=== PATIENT | male | born 1975 | race American Indian/Alaskan Native ===

== ENCOUNTER 2019-08-16 08:36 | Emergency (ER) | payer SELFPAY ==
--- NOTE | 2019-08-16 10:34 | Emergency Department Report ---
ED Headache HPI - General Chief Complaint: Headache Stated Complaint: HEADACHE Time Seen by Provider: 08/16/19 10:07 Source: patient Exam Limitations: no limitations - History of Present Illness Initial Comments: 44-year-old male with a history of diabetes, hypertension and tobacco use presents to the ER today complaining of headache and lightheadedness. Patient states his symptoms started 2 days ago. Patient reports that he has had a left frontal/left parietal headache constantly for the past 2 days. He describes it as a throbbing type pain. It is nonradiating. He reports associated lightheadedness, and blurry vision. He does admit that he has chronic blurry vision to both eyes but since Thursday has been a little worse. He also reports that on Thursday he vomited twice. He denies any vomiting yesterday or today. He denies any nausea yesterday or today. Patient states that he is also had a productive cough bringing up white-yellow sputum for the past couple days. He denies any associated neck pain. He denies any fever, chills, shortness of breath, wheezing, chest pain, abdominal pain, diarrhea, focal weakness, numbness, tingling or speech changes. He denies any recent head injury. He denies any obvious ill contacts. Timing/Duration: other (2 days ago ) Allergies/Adverse Reactions: Allergies No Known Allergies Allergy (Unverified 08/16/19 08:38) Home Medications: Ambulatory Orders Butalb/Acetaminophen/Caffeine [Fioricet 50-300-40 mg CAP] 1 cap PO Q6HR PRN #12 cap 08/16/19 Ondansetron [Zofran Odt] 4 mg PO Q8HR PRN #12 tab.rapdis 08/16/19 cephALEXin [Keflex] 500 mg PO Q8HR #21 cap 08/16/19 ED Review of Systems ROS: Stated complaint: HEADACHE Other details as noted in HPI Comment: All other systems reviewed and negative Constitutional: denies: chills, fever ENT: denies: ear pain, throat pain Respiratory: cough. denies: shortness of breath, SOB with exertion, SOB at rest, stridor, wheezing Cardiovascular: denies: chest pain, palpitations Gastrointestinal: nausea, vomiting. denies: abdominal pain, diarrhea Genitourinary: denies: urgency, dysuria Musculoskeletal: denies: back pain, joint swelling, arthralgia Neurological: headache, vertigo, other (Lightheadedness). denies: weakness, numbness, paresthesias, confusion, abnormal gait Psychiatric: denies: anxiety, depression Hematological/Lymphatic: denies: easy bleeding, easy bruising ED Past Medical Hx - Past Medical History Previous Medical History?: Yes Hx Hypertension: Yes Hx Diabetes: Yes - Surgical History Past Surgical History?: No - Social History Smoking Status: Current Every Day Smoker Substance Use Type: None - Medications Home Medications: Home Medications Medication Instructions Recorded Confirmed Last Taken Type Butalb/Acetaminophen/Caffeine 1 cap PO Q6HR PRN #12 cap 08/16/19 Unknown Rx [Fioricet 50-300-40 mg CAP] Ondansetron [Zofran Odt] 4 mg PO Q8HR PRN #12 tab.rapdis 08/16/19 Unknown Rx cephALEXin [Keflex] 500 mg PO Q8HR #21 cap 08/16/19 Unknown Rx ED Physical Exam - General Limitations: No Limitations General appearance: alert, in no apparent distress - Head Head exam: Present: atraumatic, normocephalic, normal inspection - Eye Eye exam: Present: normal appearance, PERRL, EOMI Pupils: Present: normal accommodation - ENT ENT exam: Present: normal exam, mucous membranes moist, other (Fluid noted behind both TMs.) - Neck Neck exam: Present: normal inspection, full ROM. Absent: meningismus - Respiratory Respiratory exam: Present: normal lung sounds bilaterally. Absent: respiratory distress, wheezes, rales, rhonchi, stridor - Cardiovascular Cardiovascular Exam: Present: regular rate, normal rhythm. Absent: systolic murmur, diastolic murmur, rubs, gallop - GI/Abdominal GI/Abdominal exam: Present: soft, normal bowel sounds - Extremities Exam Extremities exam: Present: normal inspection, full ROM. Absent: pedal edema - Neurological Exam Neurological exam: Present: alert, altered, oriented X3, CN II-XII intact, normal gait (slow but normal ), motor sensory deficit, other - Psychiatric Psychiatric exam: Present: normal affect, normal mood ED Course Vital Signs 08/16/19 08/16/19 08/16/19 08:38 12:41 14:59 Temperature 98.3 F 100.3 F H Pulse Rate 106 H 91 H Respiratory 16 16 18 Rate Blood Pressure 146/86 163/110 O2 Sat by Pulse 99 96 Oximetry 08/16/19 15:48 Temperature 99.6 F Pulse Rate Respiratory Rate Blood Pressure O2 Sat by Pulse Oximetry - Reevaluation(s) Reevaluation #1: 08/16/19 12:31 1231 --patient resting comfortably. He reports improvement of his headache after medications. Patient labs reviewed, creatinine noted to be elevated at 2.1, BUN is 20, sodium 128, sugars 345. Lipase mildly elevated by patient has no abdominal pain. EKG shows nothing acute. Trop nl. Chest x-ray normal. Head CT is normal. CBC normal. Urinalysis pending. Discussed case with Dr Rothman, he recommend IV fluids, 5units insulin IV and repeat BMP/accucheck in about 1 hr. 08/16/19 12:35 Reevaluation #2: 08/16/19 15:49 Patient reports feeling much better after IV fluids, and insulin. He also states that his headache and lightheadedness is better. Repeat BMP shows an improvement in his renal function as well as his sodium and his blood sugar. Urinalysis is concerning for UTI, urine culture is pending. Patient appears well, he is not toxic, he is currently no acute distress. He is awake, alert and oriented x3. He is neurologically intact. Discussed lab results, imaging results, suspected diagnosis and treatment plan with patient. Informed patient that I recommend that he drinks lots of water daily, and that he should be compliant with taking his insulin as well as a blood pressure medication. He will be started on antibiotic for UTI. No indication for further work-up, admission, or emergent consultation at this time. Patient informed to follow-up with his primary care doctor. But he understands if anything worsens or changes return to the ER. Patient was stable at time of discharge. ED Medical Decision Making - Lab Data Result diagrams: 08/16/19 11:01 08/16/19 14:42 - EKG Data EKG shows normal: sinus rhythm Rate: normal (95) - EKG Data Interpretation: no acute changes - Radiology Data Radiology results: report reviewed [facility] [address] [place] [address] XRay Report Signed Patient: MIAH LOPEZ MR#: [id number] : 1975 Acct:[id number] Age/Sex: 44 / M ADM Date: 08/16/19 Loc: ED Attending Dr: Ordering Physician: FARZANA DOHERTY Date of Service: 08/16/19 Procedure(s): XR chest routine 2V Accession Number(s): [id number] cc: FARZANA DOHERTY Fluoro Time In Minutes: CHEST 2 VIEWS INDICATION: Cough. COMPARISON: None. FINDINGS: Support devices: None. Heart: Within normal limits. Lungs/Pleura: No acute air space or interstitial disease. No significant pleural effusion. IMPRESSION: No acute findings. Signer Name: Chris Martinez MD Signed: 08/16/2019 11:04 AM Workstation Name: [id number] Transcribed By: ES Dictated By: Chris Martinez MD Electronically Authenticated By: Chris Martinez MD Signed Date/Time: 08/16/19 1104 DD/ 1103 TD/TT: [place] [address] Cat Scan Report Signed Patient: MIAH LOPEZ MR#: [id number] : 1975 Acct:[id number] Age/Sex: 44 / M ADM Date: 08/16/19 Loc: ED Attending Dr: Ordering Physician: FARZANA DOHERTY Date of Service: 08/16/19 Procedure(s): CT head/brain wo con Accession Number(s): [id number] cc: FARZANA DOHERTY NONENHANCED CT SCAN OF THE HEAD: INDICATION / CLINICAL INFORMATION: 44 years Male; Dizzy/headache X3 days hx of HBP. TECHNIQUE: Routine CT head without contrast. All CT scans at this location are performed using CT dose reduction for ALARA by means of automated exposure control. COMPARISON: None. FINDINGS: BRAIN / INTRACRANIAL CONTENTS: No acute hemorrhage, mass effect, midline shift, hydrocephalus, or acute, large territorial infarct. Since the patchy areas of volume loss are seen in the lateral convexity of both cerebral hemispheres along the medial surface of frontal lobes. Periventricular low attenuation areas are seen due to chronic small vessel disease. Brainstem and cerebellar hemispheres appear normal. CRANIOCERVICAL JUNCTION: No significant abnormality. ORBITS: No significant abnormality of visualized orbits. SINUSES / MASTOIDS: No significant abnormality of the visualized paranasal sinuses or mastoid air cells. ADDITIONAL FINDINGS: None. IMPRESSION: No acute focal parenchymal lesion in the brain Signer Name: Subha Colon MD Signed: 08/16/2019 12:15 PM Workstation Name: [email or web address] Transcribed By: BS Dictated By: Subha Prescott MD Electronically Authenticated By: Subha Prescott MD Signed Date/Time: 08/16/19 1215 DD/ 1207 TD/TT: Critical care attestation.: If time is entered above; I have spent that time in minutes in the direct care of this critically ill patient, excluding procedure time. ED Disposition Clinical Impression: Dehydration, Headache, Renal insufficiency, Hyperglycemia due to diabetes mellitus, UTI (urinary tract infection) Disposition: - TO HOME OR SELFCARE Is pt being admited?: No Does the pt Need Aspirin: No Condition: Stable Instructions: Dehydration (ED), Urinary Tract Infection in Men (ED), Diabetes Mellitus Type 2 in Adults (ED), Acute Headache (ED), Impaired Kidney Function (ED) Additional Instructions: I recommend you continue to drink lots of fluids (water) at home. It is importan t that you take you blood pressure as well as diabetic medications daily. I recommend close follow up with PCP. Return to ED if worse. Prescriptions: Butalb/Acetaminophen/Caffeine [Fioricet 50-300-40 mg CAP] 1 cap PO Q6HR PRN #12 cap PRN Reason: Headache cephALEXin [Keflex] 500 mg PO Q8HR #21 cap Ondansetron [Zofran Odt] 4 mg PO Q8HR PRN #12 tab.rapdis PRN Reason: Nausea Referrals: RAVI FATIMA MD [Staff Physician] - 3-5 Days Time of Disposition: 15:44
[2019-08-16] MEDS ORDERED: diphenhydrAMINE 50 MG/ML VIAL IV ONE (10:35)
[2019-08-16] MEDS ORDERED: METOCLOPRAMIDE 10 MG/2 ML INJ IV ONE (10:35)
--- NOTE | 2019-08-16 11:08 | XRay Report ---
CHEST 2 VIEWS INDICATION: Cough. COMPARISON: None. FINDINGS: Support devices: None. Heart: Within normal limits. Lungs/Pleura: No acute air space or interstitial disease. No significant pleural effusion. IMPRESSION: No acute findings. Signer Name: Chris Martinez MD Signed: 08/16/2019 11:04 AM Workstation Name: [id number]
[2019-08-16 11:13] LABS: Basophils # (Auto) 0.1 K/mm3 (0.0-0.1); Basophils % (Auto) 1.2 % (0.0-1.8); Eosinophils % (Auto) 0.4 % (0.0-4.3); Lymphocytes # (Auto) 0.7 K/mm3 (1.2-5.4); Lymphocytes % (Auto) 14.8 % (13.4-35.0); Mean Corpuscular HGB Conc 36 % (32-34); Mean Corpuscular Volume 88 fl (84-94); Monocytes # (Auto) 0.5 K/mm3 (0.0-0.8); Monocytes % (Auto) 11.6 % (0.0-7.3); Platelet Count 144 K/mm3 (140-440); Red Blood Count 4.72 M/mm3 (3.65-5.03); Red Cell Distribution Width 12.4 % (13.2-15.2)
[2019-08-16 11:18] LABS: Hematocrit 41.6 % (35.5-45.6); Hemoglobin 15.1 gm/dl (11.8-15.2)
[2019-08-16 12:04] LABS: Calcium 8.5 mg/dL (8.4-10.2)
[2019-08-16 12:05] LABS: Albumin 2.9 g/dL (3.9-5)
[2019-08-16] MEDS ORDERED: SODIUM CHLORIDE 0.9% 1000 ML 1,000 ML IV SCH (12:15)
--- NOTE | 2019-08-16 12:19 | Cat Scan Report ---
NONENHANCED CT SCAN OF THE HEAD: INDICATION / CLINICAL INFORMATION: 44 years Male; Dizzy/headache X3 days hx of HBP. TECHNIQUE: Routine CT head without contrast. All CT scans at this location are performed using CT dos e reduction for ALARA by means of automated exposure control. COMPARISON: None. FINDINGS: BRAIN / INTRACRANIAL CONTENTS: No acute hemorrhage, mass effect, midline shift, hydrocephalus, or acu te, large territorial infarct. Since the patchy areas of volume loss are seen in the lateral convexit y of both cerebral hemispheres along the medial surface of frontal lobes. Periventricular low attenua tion areas are seen due to chronic small vessel disease. Brainstem and cerebellar hemispheres appear normal. CRANIOCERVICAL JUNCTION: No significant abnormality. ORBITS: No significant abnormality of visualized orbits. SINUSES / MASTOIDS: No significant abnormality of the visualized paranasal sinuses or mastoid air amelia ls. ADDITIONAL FINDINGS: None. IMPRESSION: No acute focal parenchymal lesion in the brain Signer Name: Subha Colon MD Signed: 08/16/2019 12:15 PM Workstation Name: [id number]
[2019-08-16] MEDS ORDERED: INSULIN REGULAR, HUMAN 100 UNITS/1 ML IV ONE (12:31)
[2019-08-16 13:21] LABS: Bacteria,Urine 1+ /HPF (Negative); Bilirubin,Urine NEG (Negative); Blood,Urine MOD (Negative); Color,Urine Amber (Yellow); Mucus,Urine 2+ /HPF; Urobilinogen,Urine < 2.0 mg/dL (<2.0)
[2019-08-16 13:22] LABS: Protein,Urine >500 mg/dL (Negative)
[2019-08-16 15:09] VITALS: BP 163/110
[2019-08-16 15:22] LABS: Calcium 7.7 mg/dL (8.4-10.2)
[2019-08-16] MEDS ORDERED: ACETAMINOPHEN 325 MG TAB PO ONE (15:39)
== END 2019-08-16 15:55 | disposition home or self-care (01) ==
LOC: ED 08:36
DX: N39.0 Urinary tract infection, site not specified (principal); N28.9 Disorder of kidney and ureter, unspecified; E11.65 Type 2 diabetes mellitus with hyperglycemia; E86.0 Dehydration; R51 Headache; I10 Essential (primary) hypertension; E11.9 Type 2 diabetes mellitus without complications; F17.200 Nicotine dependence, unspecified, uncomplicated; Z79.899 Other long term (current) drug therapy
CPT/HCPCS: 36415; 70450; 71046; 80048; 80053; 81001; 82962; 83690; 84484; 85025; 87086; 93005; 96361; 96374; 96375; 99285; J1200; J2765; J7030; J1815